=== PATIENT | female | born 1925 | race Caucasian/White ===

== ENCOUNTER 2017-01-03 09:28 | Outpatient (CLI) | payer MEDICARE ==
[2017-01-03 09:57] LABS: Prothrombin Time 33.1 SEC (12.0-14.7)
== END 2017-01-03 09:29 | disposition home or self-care (01) ==
LOC: BURLAB 09:28
PROVIDERS: ATTEND Internal Medicine Cardiovascular Disease
DX: I48.91 Unspecified atrial fibrillation (principal)
CPT/HCPCS: 36415; 85610

== ENCOUNTER 2017-01-17 13:28 | Outpatient (CLI) | payer MEDICARE ==
[2017-01-17 13:49] LABS: INR-International Normal Ratio 1.7; Prothrombin Time 20.4 SEC (12.0-14.7)
== END 2017-01-17 13:29 | disposition home or self-care (01) ==
LOC: BURLAB 13:28
PROVIDERS: ATTEND Internal Medicine Cardiovascular Disease
DX: I48.91 Unspecified atrial fibrillation (principal)
CPT/HCPCS: 36415; 85610

== ENCOUNTER 2017-01-31 12:46 | Outpatient (CLI) | payer MEDICARE ==
[2017-01-31 13:12] LABS: Prothrombin Time 23.7 SEC (12.0-14.7)
== END 2017-01-31 12:47 | disposition home or self-care (01) ==
LOC: BURLAB 12:46
PROVIDERS: ATTEND Internal Medicine Cardiovascular Disease
DX: I48.91 Unspecified atrial fibrillation (principal)
CPT/HCPCS: 36415; 85610

== ENCOUNTER 2017-01-31 15:17 | Outpatient (CLI) | payer MEDICARE | END 2017-01-31 15:18 | disposition home or self-care (01) | LOC: HPCALD 15:17 | PROVIDERS: ATTEND Family Medicine | DX: N39.0 Urinary tract infection, site not specified (principal) | CPT/HCPCS: 36415; 85610; 87077; 87086 ==

== ENCOUNTER 2017-02-15 09:36 | Outpatient (CLI) | payer MEDICARE ==
[2017-02-15 10:07] LABS: INR-International Normal Ratio 3.6; Prothrombin Time 37.8 SEC (12.0-14.7)
== END 2017-02-15 09:37 | disposition home or self-care (01) ==
LOC: BURLAB 09:36
PROVIDERS: ATTEND Internal Medicine Cardiovascular Disease
DX: I48.91 Unspecified atrial fibrillation (principal)
CPT/HCPCS: 36415; 85610

== ENCOUNTER 2017-02-22 09:46 | Outpatient (CLI) | payer MEDICARE ==
[2017-02-22 10:08] LABS: INR-International Normal Ratio 1.9
== END 2017-02-22 09:47 | disposition home or self-care (01) ==
LOC: BURLAB 09:46
PROVIDERS: ATTEND Internal Medicine Cardiovascular Disease
DX: I48.91 Unspecified atrial fibrillation (principal)
CPT/HCPCS: 36415; 85610

== ENCOUNTER 2017-03-10 09:46 | Outpatient (CLI) | payer MEDICARE ==
[2017-03-10 10:05] LABS: INR-International Normal Ratio 2.5; Prothrombin Time 28.2 SEC (12.0-14.7)
== END 2017-03-10 09:47 | disposition home or self-care (01) ==
LOC: BURLAB 09:46
PROVIDERS: ATTEND Internal Medicine Cardiovascular Disease
DX: I48.91 Unspecified atrial fibrillation (principal)
CPT/HCPCS: 36415; 85610

== ENCOUNTER 2017-03-28 10:00 | Outpatient (CLI) | payer MEDICARE ==
[2017-03-28 10:20] LABS: INR-International Normal Ratio 2.2; Prothrombin Time 25.4 SEC (12.0-14.7)
== END 2017-03-28 10:01 | disposition home or self-care (01) ==
LOC: BURLAB 10:00
PROVIDERS: ATTEND Internal Medicine Cardiovascular Disease
DX: I48.91 Unspecified atrial fibrillation (principal)
CPT/HCPCS: 36415; 85610

== ENCOUNTER 2017-04-21 14:12 | Outpatient (CLI) | payer MEDICARE ==
--- NOTE | 2017-04-21 16:16 | RAD ---
CHEST TWO VIEWS 04/21/17 Comparison is made with a 12/02/14 study done at [facility]. A 5.3 cm mass has appeared in the apex of the left upper lobe, a new finding since the prior study. COPD is present with flattening of the diaphragm. The heart is mildly enlarged but there is no conge stive change. No lobar consolidations were seen. Faint calcification is seen in the aortic arch. Ca rdiac pacer is in place. The trachea is midline. IMPRESSION: 5.3 cm solid opacity in the apex of the left upper lobe. 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 An infectious cause is t heoretically possible but less likely. CT recommended. Findings discussed with Dr. Acosta at 1602 on 04/21/17 POS: HOME
== END 2017-04-21 14:13 | disposition home or self-care (01) ==
LOC: BURRAD 14:12
PROVIDERS: ATTEND Family Medicine
DX: R04.2 Hemoptysis (principal); R05 Cough; J98.4 Other disorders of lung
CPT/HCPCS: 71020

== ENCOUNTER 2017-05-03 09:54 | Outpatient (CLI) | payer MEDICARE ==
[2017-05-03 10:13] LABS: Prothrombin Time 23.1 SEC (12.0-14.7)
== END 2017-05-03 09:55 | disposition home or self-care (01) ==
LOC: BURLAB 09:54
PROVIDERS: ATTEND Internal Medicine Cardiovascular Disease
DX: I48.91 Unspecified atrial fibrillation (principal)
CPT/HCPCS: 36415; 85610

== ENCOUNTER 2017-06-03 11:10 | Outpatient (CLI) | payer MEDICARE ==
[2017-06-03 11:28] LABS: INR-International Normal Ratio 1.9; Prothrombin Time 21.9 SEC (12.0-14.7)
== END 2017-06-03 11:11 | disposition home or self-care (01) ==
LOC: BURLAB 11:10
PROVIDERS: ATTEND Internal Medicine Cardiovascular Disease
DX: I48.91 Unspecified atrial fibrillation (principal)
CPT/HCPCS: 36415; 85610

== ENCOUNTER 2017-07-08 09:32 | Outpatient (CLI) | payer MEDICARE ==
[2017-07-08 09:56] LABS: Prothrombin Time 23.5 SEC (12.0-14.7)
== END 2017-07-08 09:33 | disposition home or self-care (01) ==
LOC: BURLAB 09:32
PROVIDERS: ATTEND Internal Medicine Cardiovascular Disease
DX: I48.91 Unspecified atrial fibrillation (principal)
CPT/HCPCS: 36415; 85610